=== PATIENT | male | born 1985 | race Caucasian/White ===

== ENCOUNTER 2020-04-23 11:44 | Inpatient (IN) ==
[2020-04-23] MEDS: 0.9 % SODIUM CHLORIDE 250 ML IV ONE ×2 (11:45→13:07)
[2020-04-23] MEDS ORDERED: PANTOPRAZOLE 40 MG VIAL IV ONE (12:03)
--- NOTE | 2020-04-23 12:07 | Emergency Department Note ---
GI Bleed HPI General Chief complaint: Rectal Bleed Stated complaint: rectal bleed, pale, syncope Time Seen by Provider: 04/23/20 11:51 Source: patient Mode of arrival: wheelchair Limitations: no limitations History of Present Illness HPI Narrative: Narrative: Patient describes 4 melanotic stools since about 5 days ago including this morning. This morning he nearly passed out like he got so weak he had to go down on the knee but he never completely went out. It seemed like his vision did get blurry and narrowed but it only lasted 1 to 2 minutes and he was back in bed. A roommate helped him by private car come to the emergency room. Here he was found to be weak looking, short of breath, pale. Patient admitted to poor p.o. intake with poor appetite. He does have chronic heartburn. He does drink 5-6 drinks/glasses of hard liquor daily and has been doing so for a long period of time. No blood thinners. He uses ibuprofen maybe 2 pills twice a week for headache. Sometimes Tylenol but no Aleve or aspirin. No history of peptic ulcer disease but describes the heartburn as mentioned which is fairly chronic. Does not take any medications for this. He also has had some accompanying chills and sweats today. No fevers at home. He is a never smoker. Related Data Home Medications Medication Instructions Recorded Confirmed No Known Home Meds 08/17/19 04/23/20 Allergies Allergy/AdvReac Type Severity Reaction Status Date / Time No Known Drug Allergies Allergy Unknown NONE Verified 08/17/19 05:10 [NKDA] Review of Systems ROS ROS Narrative: Narrative: No blurry vision or double vision No sore throat or runny nose No chest pain or palpitations No cough or wheeze No abdominal pain, diarrhea constipation, hematochezia or acid reflux specifically. No dysuria or frequency No back pain No rashes or lesions No headaches. Feels generalized weakness. No anxiety or depression Feels exhausted tired. No heat or cold intolerance No easy bleeding or easy bruising. [facility] Narrative Patient History Narrative: Narrative: Denies: Diabetes, renal disease, hypertension, anxiety, depression. Medical/Surgical/Family History All Active Problems (Updated 04/23/20 @ 16:21 by Eduardo Selby DO) Anemia due to blood loss, acute (Acute) Acute upper gastrointestinal bleeding (Acute) Alcoholism, chronic (Acute) Abnormal digital rectal exam (Acute) Alcoholism, chronic (Acute) Allergic reaction (Acute) Bee sting reaction (Acute) Urticarial rash (Acute) Medical History (Updated 04/23/20 @ 16:21 by Eduardo Selby DO) Alcoholism, chronic Social History Smoking Status: Smokeless tobacco Exam Narrative Narrative: Narrative: General Limitations: no limitations General appearance: Present alert, in no apparent distress, nontoxic and other (Generalized pallor is moderate-severe.) Head Head: Present atraumatic and normocephalic Eye Eye: Present normal appearance, PERRL and EOMI ENT ENT: Present normal oropharynx and mucous membranes moist Neck Neck: Present trachea midline; Absent lymphadenopathy and thyromegaly Chest Chest: Present symmetric chest wall rise Respiratory Respiratory: Present normal lung sounds bilaterally; Absent respiratory distress, rales/crackles, wheezes, stridor, accessory muscle use and prolonged expiratory phase Cardiovascular Cardiovascular: Present regular rate, normal rhythm and tachycardia (Mild. When he first arrived and ambulatory was markedly tachycardic.); Absent systolic murmur and diastolic murmur Adbominal Abdominal: Present soft; Absent distention, tenderness, guarding, rebound, rigidity, organomegaly and mass Extremities Extremities: Absent pedal edema, pretibial edema, calf tenderness and cyanosis Back Back: Absent CVA tenderness (R), CVA tenderness (L) and spinous process tenderness Neurological Neurological: Present alert and oriented X3 Psychiatric Psychiatric: Present normal affect, polite and pleasant; Absent depressed, agitated, anxious and poor eye contact Skin Skin: Present warm (WNL) and dry; Absent cyanosis and pallor Course Vital Signs Vital signs: Vital Signs Temperature 97.6 F 04/23/20 11:44 Pulse Rate 140 H 04/23/20 11:44 Respiratory Rate 22 04/23/20 11:44 Blood Pressure 104/64 04/23/20 11:44 Pulse Oximetry (%) 99 04/23/20 11:44 Temperature 97.6 F 04/23/20 11:45 Pulse Rate 99 H 04/23/20 15:46 Respiratory Rate 9 L 04/23/20 15:46 Blood Pressure 114/68 04/23/20 15:46 Pulse Oximetry (%) 100 04/23/20 15:46 MDM MDM Narrative Medical decision making narrative: Narrative: 11:53 AM - pale, short of breath, weak, near syncopal with melanotic stools. Multiple labs. Second IV. PPI. Coags. 12:05 PM - EKG is sinus rhythm at around 96 with no ACS or other abnormalities. 12:27 PM - with a hemoglobin of 5.9. Patient has stabilized with a liter of fluids. Second liter going. He now does have a second IV site. We will type and cross 3 units. We will hold on using O- since he seems to have stabilized. 12:42 PM - patient denies any history of liver disease that he is aware of. Digital rectal exam reveals grossly positive Hemoccult without any red stool. It is a black residue. On rectal exam he has a large anterior rounded smooth mass that is at least 5 cm in size. It does not appear to be prostate or bladder. It is not friable as in no blood but exact source is not obvious. Not particularly tender. Patient has not previously experienced alcohol withdrawal. He wonders if his s weatiness and chills this morning could have been related to a withdrawal. He has not drank x4 days. 3:07 PM - spoke with GI, Dr. Damian Leslie, who agrees with circumstances of needing EGD, probable upper GI bleed probable gastric or duodenal ulcer. He suggest patient be admitted under hospitalist and get blood and that he will do EGD when blood is hanging. Probably not an acute arterial bleed. The EGD will define better where he needs to go a longer term as patient's risks for acute severe bleed will not be handled by Dr. Murry, not on-call in the evening. Nursing staff will help determine best circumstances. Dr. Murry will do an exam when patient has anesthesia to additionally evaluate the rectal mass that I palpated. 3:57 PM - spoke with hospitalist, Dr. Narinder Robb, who is pointing out to help patient is young and did have significant bleeding to have had such a tachycardia. He may not be actively bleeding but has at least had a very significant bleed recently to be as symptomatic and problematic with vital sign changes, etc. He therefore is pointing out the importance for him to be in ICU. He would like to have 5 units of blood available on hold. He recommends going ahead with the PPI drip. He is willing to have Dr. Mathew as backup for acute changes that would be of disastrous or require extraordinary intervention such as laparotomy. Blood resuscitation would be the most important thing to be cautious to have available. He agrees with monitoring H&H including a POC Chem-8 current. This is ordered. PPI drip is ordered. As of 3:45 PM, patient's pulse 99, blood pressure 114/68, respirations 9, saturating 100% on room air. Lab Data Result diagrams: 04/23/20 12:08 04/23/20 12:08 Labs: Lab Results 04/23/20 04/23/20 04/23/20 Range/Units 12:08 12:08 12:08 WBC 6.3 (4.5-11.0) K/mcL RBC 1.82 L (4.50-5.90) M/mcL Hgb 5.7 L* (13.5-16.5) g/dL Hct 17.8 L* (41.0-55.0) % POC Hct 17 L* (41-55) % MCV 97.8 (80.0-100.0) fL MCH 31.3 (26.0-34.0) pg MCHC 32.0 (31.0-36.0) g/dL RDW 14.0 (11.5-14.5) % Plt Count 245 (140-440) K/mcL MPV 9.8 (7.4-10.4) fL Neut % (Auto) 44.0 (38.0-78.0) % Lymph % (Auto) 46.8 (15.0-49.0) % [place] % (Auto) 7.1 (1.0-12.0) % Eos % (Auto) 1.9 (0.0-7.0) % Baso % (Auto) 0.2 (0.0-2.0) % Lymph # (Auto) 2.96 (1.50-4.80) K/mcL [place] # (Auto) 0.45 (0.10-0.90) K/mcL Eos # (Auto) 0.12 (0.00-0.70) K/mcL Baso # (Auto) 0.01 (0.00-0.20) K/mcL Absolute Neutrophils 2.78 (1.80-8.00) K/mcL POC PT 12.3 (11.9-14.5) sec POC INR 1.0 (0.8-1.2) APTT 24.1 (20.0-37.0) sec POC Sodium 136 (133-145) mEq/L Sodium 136 (133-145) mmol/L POC Potassium 3.9 (3.3-5.1) mEql/L Potassium 4.0 (3.3-5.1) mmol/L POC Chloride 105 (96-108) mEq/L Chloride 103 (96-108) mmol/L Carbon Dioxide 21 L (22-30) mmol/L POC Total CO2 20 L (22-30) mmol/L Anion Gap 12.0 (8.0-16.0) POC BUN 25 H (6-20) mg/dL BUN 26 H (6-20) mg/dL Creatinine 0.8 (0.7-1.2) mg/dL POC Creatinine 0.8 (0.6-1.2) mg/dL GFR Calculation 116 Glucose 150 H (70-105) mg/dL POC Glucose 149 H (70-105) mg/dL Calcium 8.2 L (8.6-10.4) mg/dL POC WB Ioniz Calcium 1.16 (1.16-1.32) mmEq/L Total Bilirubin 0.2 (0.1-1.0) mg/dL AST 24 (<40) U/L ALT 15 (<40) U/L Alkaline Phosphatase 45 (39-117) U/L Total Protein 5.3 L (5.9-8.4) gm/dL Albumin 3.3 (3.2-5.2) gm/dL Globulin 2.0 L (2.2-3.7) gm/dL Albumin/Globulin Ratio 1.6 (1.0-2.3) Discharge Plan Patient/Caregiver Discharge Instructions Pt seen by FIRE CHIEF'S AIDE/PA only: No Clinical Impression: Anemia due to blood loss, acute, Acute upper gastrointestinal bleeding, Alcoholism, chronic, Abnormal digital rectal exam Patient Disposition: Xfer As Inpt ([facility]) Condition: Fair Follow up with: No,PCP [Primary Care Provider] - Prescriptions: No Action No Known Home Meds RF: 0
[2020-04-23 12:23] LABS: POC Blood Urea Nitrogen 25 mg/dL (6-20); POC CO2 20 mmol/L (22-30); POC Calcium, Ionized 1.16 mmEq/L (1.16-1.32); POC Chloride 105 mEq/L (96-108); POC Creatinine 0.8 mg/dL (0.6-1.2); POC Glucose, Random 149 mg/dL (70-105); POC Hematocrit 17 % (41-55); POC Potassium 3.9 mEql/L (3.3-5.1); POC Sodium 136 mEq/L (133-145)
[2020-04-23] MEDS ORDERED: SODIUM CHLORIDE IV ONE (12:39)
[2020-04-23 12:45] LABS: POC Pro Time 12.3 sec (11.9-14.5)
[2020-04-23 12:59] LABS: Basophils # (Auto) 0.01 K/mcL (0.00-0.20); Basophils % (Auto) 0.2 % (0.0-2.0); Eosinophils # (Auto) 0.12 K/mcL (0.00-0.70); Eosinophils % (Auto) 1.9 % (0.0-7.0); Hematocrit 17.8 % (41.0-55.0); Hemoglobin 5.7 g/dL (13.5-16.5); Lymphocytes # (Auto) 2.96 K/mcL (1.50-4.80); Lymphocytes % (Auto) 46.8 % (15.0-49.0); Mean Cell Volume 97.8 fL (80.0-100.0); Mean Platelet Volume 9.8 fL (7.4-10.4); Monocytes # (Auto) 0.45 K/mcL (0.10-0.90); Monocytes % (Auto) 7.1 % (1.0-12.0); Platelet Count 245 K/mcL (140-440); RBC 1.82 M/mcL (4.50-5.90); WBC 6.3 K/mcL (4.5-11.0)
[2020-04-23 13:04] LABS: ALT/SGPT 15 U/L (<40); AST/SGOT 24 U/L (<40); Albumin 3.3 gm/dL (3.2-5.2); Albumin/Globulin Ratio 1.6 (1.0-2.3); Alkaline Phosphatase 45 U/L (39-117); Bilirubin,Total 0.2 mg/dL (0.1-1.0); Blood Urea Nitrogen 26 mg/dL (6-20); Calcium 8.2 mg/dL (8.6-10.4); Carbon Dioxide 21 mmol/L (22-30); Chloride 103 mmol/L (96-108); Glomerular Filtration Rate 116; Glucose 150 mg/dL (70-105)
[2020-04-23 13:29] LABS: Partial Thromboplastin Time 24.1 sec (20.0-37.0)
[2020-04-23] MEDS ORDERED: KETAMINE HCL 50 MG/ML ML IV PRN (15:52)
[2020-04-23] MEDS ORDERED: PROPOFOL 200 MG/20 ML VIAL IV SCH (16:00)
[2020-04-23] MEDS ORDERED: PANTOPRAZOLE 80 MG in 0.9 % SODIUM CHLORIDE 100 ML IV SCH (16:15)
[2020-04-23] MEDS ORDERED: MIDAZOLAM 2 MG/2 ML VIAL ONE (16:28)
[2020-04-23] MEDS ORDERED: PROPOFOL 200 MG/20 ML VIAL IV ONE ×2 (16:28→17:54)
[2020-04-23] MEDS ORDERED: 0.9 % SODIUM CHLORIDE 250 ML IV SCH (16:30)
--- NOTE | 2020-04-23 17:03 | Internal Med History&Physical ---
HPI History of Present Illness Patient information: Note initiated : 04/23/20 at 4:48 pm Service Date, if different from initiated Date: [] Patient: Arnulfo Holland 34 y/o M admitted on for Rectal Bleed, Pale, Syncope. Chief Complaint: [dark stools and light headedness ] History of present illness: Mr. Holland is a 34 year old male with a history of alcohol use disorder presents for evaluation of extreme fatigue, lightheadedness and intermittent dark tarry stools for several weeks. Patient says that he first noticed dark tarry stools several weeks ago and they resolved spontaneously. They have reoccurred recently and the patient has experienced progressive fatigue, lightheadedness the point where he was not able to walk across the room without symptoms. The patient presented to the ED and was found to have a hemoglobin of 5.7. The patient was given 3 L of RBC. He felt better after receiving IV fluids and started on red blood cell transfusions. GI was consulted, plans for urgent endoscopic work-up. The patient was started on Protonix IV and admitted to the ICU. Review of systems Constitutional: extreme fatigue, no fevers Eyes: no vision changes or pain Cardiovascular: no chest pain, no palpitations Respiratory: no cough or dyspnea Gastrointestinal: positive for melanotic stools and chronic heart burn Genitourinary: no dysuria or difficulty voiding Musculoskeletal: no arthralgia or myalgia Integumentary: no skin lesion or wound Neurological: no focal weakness or numbness Psychiatric: no anxiety or depression PFSH PFSH All Active Problems (Updated 04/23/20 @ 16:21 by Eduardo Selby DO) Anemia due to blood loss, acute (Acute) Acute upper gastrointestinal bleeding (Acute) Alcoholism, chronic (Acute) Abnormal digital rectal exam (Acute) Alcoholism, chronic (Acute) Allergic reaction (Acute) Bee sting reaction (Acute) Urticarial rash (Acute) Medical History (Updated 04/23/20 @ 16:21 by Eduardo Selby DO) Alcoholism, chronic Social History smoking status: Smokeless tobacco MEDS/ALLERGIES Home Medications and Allergies Home Medications Medication Instructions Recorded Confirmed Type No Known Home Meds 08/17/19 04/23/20 History Allergies Allergy/AdvReac Type Severity Reaction Status Date / Time No Known Drug Allergies Allergy Unknown NONE Verified 08/17/19 05:10 [NKDA] EXAM Constitutional Vitals: Temp Pulse Resp BP Pulse Ox 97.6 F 96 H 13 113/67 99 04/23/20 11:45 04/23/20 16:31 04/23/20 16:31 04/23/20 16:31 04/23/20 16:31 Additional findings Additional findings: Head: Atraumatic, normal inspection. Eyes: palce conjuntiva, otherwise normal appearance, no scleral icterus. Neck: full ROM Respiratory: no respiratory distress. Cardiovascular: normal rate and rhythm, S1, S2. GI/Abdominal: soft, nontender, no guarding. Extremities: full range of motion, nontender. Neurological: CN II-XII intact, intact motor, intact sensation. Psychiatric: normal mood. Skin: warm, normal color DATA Data Completed and Pending Labs: Labs from last 24 hours 04/23/20 04/23/20 04/23/20 12:34 12:08 12:08 WBC RBC Hgb Hct POC Hct 17 L* MCV MCH MCHC RDW Plt Count MPV Neut % (Auto) Lymph % (Auto) [place] % (Auto) Eos % (Auto) Baso % (Auto) Lymph # (Auto) [place] # (Auto) Eos # (Auto) Baso # (Auto) Absolute Neutrophils POC PT 12.3 POC INR 1.0 APTT 24.1 POC Sodium 136 Sodium 136 POC Potassium 3.9 Potassium 4.0 POC Chloride 105 Chloride 103 Carbon Dioxide 21 L POC Total CO2 20 L Anion Gap 12.0 POC BUN 25 H BUN 26 H Creatinine 0.8 POC Creatinine 0.8 GFR Calculation 116 Glucose 150 H POC Glucose 149 H Calcium 8.2 L POC WB Ioniz Calcium 1.16 Total Bilirubin 0.2 AST 24 ALT 15 Alkaline Phosphatase 45 Total Protein 5.3 L Albumin 3.3 Globulin 2.0 L Albumin/Globulin Ratio 1.6 Miscellaneous Test Pending 04/23/20 12:08 WBC 6.3 RBC 1.82 L Hgb 5.7 L* Hct 17.8 L* POC Hct MCV 97.8 MCH 31.3 MCHC 32.0 RDW 14.0 Plt Count 245 MPV 9.8 Neut % (Auto) 44.0 Lymph % (Auto) 46.8 [place] % (Auto) 7.1 Eos % (Auto) 1.9 Baso % (Auto) 0.2 Lymph # (Auto) 2.96 [place] # (Auto) 0.45 Eos # (Auto) 0.12 Baso # (Auto) 0.01 Absolute Neutrophils 2.78 POC PT POC INR APTT POC Sodium Sodium POC Potassium Potassium POC Chloride Chloride Carbon Dioxide POC Total CO2 Anion Gap POC BUN BUN Creatinine POC Creatinine GFR Calculation Glucose POC Glucose Calcium POC WB Ioniz Calcium Total Bilirubin AST ALT Alkaline Phosphatase Total Protein Albumin Globulin Albumin/Globulin Ratio Miscellaneous Test A/P Narrative A/P Narrative: Assessment: 34-year-old male with history of alcohol use disorder, chronic NSAID use (ibuprofen OTC), reported heartburn presented to the ED after several weeks of intermittent melanotic stools, progressive fatigue and orthostasis and found to have severe acute anemia. Most likely reason for the blood loss anemia is an upper GI bleed. Patient was also found to have a rectal mass on the DRG in the ED, uncertain etiology. No evidence of liver cirrhosis therefore variceal bleed unlikely. #Upper GI bleed #Acute blood loss anemia #Possible rectal mass of uncertain etiology #Chronic NSAID use #GERD vs PUD #Alcohol use disorder #GERD Plan: -Admit to ICU, telemetry -Protonix ggt -Hemoglobin trend [id number] for hgb<7 or symptomatic anemia -Keep 5 units RBC reserved until patient is stable. -GI consulted-planning for endoscopic workup -Further workup of possible rectal mass will depend on endoscopic findings. -Monitor for alcohol withdrawal. -No NSAIDs -No anticoagulants or antiplatelets Time Spent With Patient Time: Total time spent is greater than 50% in coordination of care (as documented) at patient's floor/unit and/or counseling patient:
[2020-04-23 17:20] LABS: POC Blood Urea Nitrogen 19 mg/dL (6-20); POC CO2 22 mmol/L (22-30); POC Chloride 108 mEq/L (96-108); POC Creatinine 0.7 mg/dL (0.6-1.2); POC Glucose, Random 104 mg/dL (70-105); POC Hematocrit < 15 % (41-55); POC Sodium 138 mEq/L (133-145)
[2020-04-23] MEDS: MIDAZOLAM 2 MG/2 ML VIAL IV SCH ×2 (17:21→18:08)
[2020-04-23] MEDS ORDERED: EPINEPHrine 1 MG/ML AMPUL IJ ONE (17:23)
[2020-04-23] MEDS ORDERED: ONDANSETRON 4 MG/2 ML VIAL IV PRN (17:41)
[2020-04-23] MEDS: PANTOPRAZOLE 80 MG in 0.9 % SODIUM CHLORIDE 100 ML IV SCH (18:15)
[2020-04-23] MEDS: 0.9 % SODIUM CHLORIDE 10 ML SYRINGE IV SCH (21:08)
[2020-04-23] MEDS: 0.9 % SODIUM CHLORIDE 250 ML IV SCH (21:08)
[2020-04-24] MEDS: PANTOPRAZOLE 80 MG in 0.9 % SODIUM CHLORIDE 100 ML IV SCH (03:50)
[2020-04-24] MEDS: 0.9 % SODIUM CHLORIDE 10 ML SYRINGE IV SCH ×3 (05:31→21:31)
[2020-04-24] MEDS: 0.9 % SODIUM CHLORIDE 250 ML IV SCH (05:51)
--- NOTE | 2020-04-24 09:05 | EGD Procedure Note ---
EGD Procedure Notes Procedure Information Patient information: Note initiated : 04/24/20 at 9:02 am Service Date: 04/23/20 Patient: Arnulfo Holland 34 y/o M admitted on 04/23/20 for Rectal Bleed, Pale, Syncope. Pre-op diagnosis general: UGI bleed. Post-Op Diagnosis general: Bleeding esophageal ulcer. Procedure: EGD with control of bleed Procedure Narrative: The procedure, alternatives and risks were discussed with the patient and the patient's questions were answered. With endoscopist-administered intravenous sedation, the Olympus video endoscope was introduced into the esophagus. The esophagus, stomach, and duodenum were examined sequentially. Severe ulcerative reflux esophagitis was seen. There was a clot in the distal esophagus with visible vessel. This was injected with epinephrine and cauterized. A sliding hiatal hernia was seen. The gastric mucosa, antrum, pyloric ring and duodenum were otherwise normal. The scope was withdrawn. Assessment: Bleeding esophageal ulcer. He will require PPI for his lifetime.
--- NOTE | 2020-04-24 11:19 | Internal Med Progress Note ---
SUBJECTIVE Subjective Patient information: Note initiated : 04/24/20 at 11:14 am Service Date, if different from initiated Date: [] Patient: Arnulfo Holland 34 y/o M admitted on 04/23/20 for Rectal Bleed, Pale, Syncope. Chief Complaint: [] Interval history: Mr. Holland is a 34 year old male with a history of alcohol use disorder presents for evaluation of extreme fatigue, lightheadedness and intermittent dark tarry stools for several weeks. Patient says that he first noticed dark tarry stools several weeks ago and they resolved spon taneously. They have reoccurred recently and the patient has experienced progressive fatigue, lightheadedness the point where he was not able to walk across the room without symptoms. The patient presented to the ED and was found to have a hemoglobin of 5.7. The patient was given 3 L of RBC. He felt better after receiving IV fluids and started on red blood cell transfusions. GI was consulted, plans for urgent endoscopic work-up. The patient was started on Protonix IV and admitted to the ICU. 04/24 EGD showed an ulcer with recent bleeding stigmata. Received another unit of RBC. Hemodynamically stable. GI did not palpate any rectal mass when performing a digital rectal exam under anaesthesia. Constitutional Vitals: Vital Signs Temp Pulse Resp BP Pulse Ox 99.1 F H 66 13 117/73 100 04/24/20 06:06 04/24/20 08:00 04/24/20 10:02 04/24/20 10:02 04/24/20 09:00 Period Temp Pulse Resp BP Sys/Traore Pulse Ox Last 24 Hr 97.6 F-99.7 F 62-140 2-27 90-148/54-121 97-100 Intake and Output 04/23/20 04/24/20 04/24/20 21:59 05:59 13:59 Intake Total 462 545 3844 Output Total 900 0 800 Balance -250 930 365 Weight 76.022 kg Intake & Output: Intake & Output 04/23/20 04/24/20 04/24/20 21:59 05:59 13:59 Intake Total 621 761 8401 Output Total 900 0 800 Balance -250 930 365 Weight 76.022 kg Intake: IV 270 Sodium Chloride 0.9% 250 ml @ 174 20 mls/hr IV .[id number] [facility] Rx#: [id number] Protonix 80 mg In Sodium 96 Chloride 0.9% 100 ml @ 8 MG/HR 10 mls/hr IV Q10H [facility] Rx#: [id number] Oral 660 840 Blood Product 650 325 Output: Void Amount 900 0 800 Other: Meal Breakfast Percent of Meal Consumed 100% Feeding Ability Independent Urine Appearance Clear Clear Clear Urine Color Bright Yellow Bright Yellow Dark Yellow Urine Odor Normal Normal Additional findings Additional findings: Head: Atraumatic, normal inspection. Eyes: normal appearance, no scleral icterus. Neck: full ROM Respiratory: no respiratory distress. Cardiovascular: normal rate and rhythm, S1, S2. GI/Abdominal: soft, nontender, no guarding. Extremities: full range of motion, nontender. Neurological: CN II-XII intact, intact motor, intact sensation. Psychiatric: normal mood. Skin: warm, normal color OBJ DATA Labs CBC & Chem 7: 04/24/20 03:17 04/23/20 12:08 Labs: Abnormal Lab Results 04/24/20 04/23/20 04/23/20 03:17 22:42 16:54 RBC Hgb 6.4 L* 7.4 L Hct POC Hct < 15 L* Carbon Dioxide POC Total CO2 POC BUN BUN Glucose POC Glucose Calcium Total Protein Globulin 04/23/20 04/23/20 12:08 12:08 RBC 1.82 L Hgb 5.7 L* Hct 17.8 L* POC Hct 17 L* Carbon Dioxide 21 L POC Total CO2 20 L POC BUN 25 H BUN 26 H Glucose 150 H POC Glucose 149 H Calcium 8.2 L Total Protein 5.3 L Globulin 2.0 L Meds: Medications Ondansetron HCl (Ondansetron 4 Mg/2 Ml Vial) 4 mg IV Q4-6HP PRN; Protocol PRN Reason: Nausea And Vomiting Pantoprazole Sodium (Pantoprazole 40 Mg Tablet) 40 mg PO BIDAC [facility] Sodium Chloride (0.9 % Sodium Chloride 10 Ml Syringe) 10 ml IV Q8 [facility] Last Admin: 04/24/20 05:31 Dose: 10 ml Documented by: A/P Narrative A/P Narrative: Assessment: 34-year-old male with history of alcohol use disorder, chronic NSAID use (ibuprofen OTC), reported heartburn presented to the ED after several weeks of intermittent melanotic stools, progressive fatigue and orthostasis and found to have severe acute anemia. EGD showed an esophageal ulcer reportedly covered with a blood clot. #Upper GI bleed secondary to esophageal ulcer #Acute blood loss anemia #GI performed digital rectal exam under anaesthesia-negative for palpable mass #Chronic NSAID use #Alcohol use disorder #GERD Plan: -Transition from protonix IV ggt to PO BID-high dose treatment for 8 weeks then probably once daily indefinitely. -Hemoglobin trend [id number] for hgb<7 or symptomatic anemia -Keep 5 units RBC reserved until stable. -Follow up with GI in clinic. -Monitor for alcohol withdrawal. -No NSAIDs -No anticoagulants or antiplatelets -Dispo: home when hemoglobin trend stable with GI follow up Time Spent With Patient Time: Total time spent is greater than 50% in coordination of care (as documented) at patient's floor/unit and/or counseling patient: QUALITY VTE Deep Vein Thrombosis/Pulmonary Embolism Present on Admission: No
[2020-04-24] MEDS: PANTOPRAZOLE 40 MG TABLET PO SCH (17:23)
[2020-04-25] MEDS: 0.9 % SODIUM CHLORIDE 10 ML SYRINGE IV SCH ×2 (05:20→12:09)
[2020-04-25 06:38] LABS: Basophils # (Auto) 0.02 K/mcL (0.00-0.20); Basophils % (Auto) 0.5 % (0.0-2.0); Eosinophils # (Auto) 0.12 K/mcL (0.00-0.70); Eosinophils % (Auto) 2.8 % (0.0-7.0); Hematocrit 22.5 % (41.0-55.0); Hemoglobin 7.4 g/dL (13.5-16.5); Lymphocytes # (Auto) 1.56 K/mcL (1.50-4.80); Mean Cell Volume 91.5 fL (80.0-100.0); Mean Corpuscular HGB Conc 32.9 g/dL (31.0-36.0); Mean Platelet Volume 9.8 fL (7.4-10.4); Monocytes # (Auto) 0.47 K/mcL (0.10-0.90); Monocytes % (Auto) 11.1 % (1.0-12.0); Neutrophils % (Auto) 48.6 % (38.0-78.0); Platelet Count 187 K/mcL (140-440); RBC 2.46 M/mcL (4.50-5.90); Red Cell Distribution Width 17.2 % (11.5-14.5); WBC 4.2 K/mcL (4.5-11.0)
[2020-04-25] MEDS: PANTOPRAZOLE 40 MG TABLET PO SCH (07:13)
[2020-04-25 07:14] LABS: Iron 13 ug/dL (61-157); TIBC Calculation 228 ug/dl (228-428); Transferrin % Saturation 6 % (20-50)
[2020-04-25 10:14] LABS: Hematocrit 22.9 % (41.0-55.0); Hemoglobin 7.4 g/dL (13.5-16.5)
--- NOTE | 2020-04-25 14:42 | Discharge Summary ---
Discharge Provider Provider Patient information: Note initiated : 04/25/20 at 2:42 pm Service Date, if different from initiated Date: [] Patient: Arnulfo Holland 34 y/o M admitted on 04/23/20 for Rectal Bleed, Pale, Syncope. Chief Complaint: [] Date of admission: 04/23/20 17:32 Discharge date: 04/25/20 Primary care physician: PCP No Consults: 04/24/20 07:52 Consult to Physician [CONS] Routine Comment: Consulting Provider: Narinder Robb Reason For Exam: Physician to Consult Discharge Meds Discharge Medications Home Medications pantoprazole 40 mg PO BIDAC 60 Days #120 tab 04/25/20 [Rx Last Taken Unknown] pantoprazole [Protonix] 40 mg PO QDAY #90 tab 04/25/20 [Rx Last Taken Unknown] COURSE Hospital Course Hospital course: Mr. Holland is a 34 year old male with a history of alcohol use disorder presents for evaluation of extreme fatigue, lightheadedness and intermittent dark tarry stools for several weeks. Patient says that he first noticed dark tarry stools several weeks ago and they resolved spontaneously. Melanotic stools reoccurred, the patient experienced progressive fatigue, lightheadedness the point where he was not able to walk across the room without symptoms. The patient presented to the ED and was found to have a hemoglobin of 5.7. The patient was given multiple units of RBC. The patient was started on Protonix IV and admitted to the ICU. GI was consulted and and urgent EGD showed a bleeding esophageal ulcer and severe ulcerative reflux esophagitis. The ulcer was injected with epinephrine and cauterized. The patient was monitored in the ICU and remained stable. He was transitioned to protonix PO BID, the plan is to continue for 8 weeks then transition to once daily protonix. After hemoglobin trend remained stable the patient was discharged to home with GI follow up. Follow up GI appointment in clinic. Follow up hemoglobin level. Discharge diagnosis: Acute upper GI bleed Secondary discharge diagnosis: Acute blood loss anemia Esophageal ulcer Time Spent with Patient Time attestation: Total time spent providing and/or coordinating discharge services: 35 minutes EXAM Constitutional Vitals: Temp Pulse Resp BP Pulse Ox 98.4 F 62 16 131/67 100 04/25/20 12:01 04/25/20 01:43 04/25/20 13:01 04/25/20 13:01 04/25/20 13:39 Additional findings Additional findings: Head: Atraumatic, normal inspection. Eyes: normal appearance, no scleral icterus. Neck: full ROM Respiratory: no respiratory distress. Cardiovascular: normal rate and rhythm, S1, S2. GI/Abdominal: soft, nontender, no guarding. Extremities: full range of motion, nontender. Neurological: CN II-XII intact, intact motor, intact sensation. Psychiatric: normal mood. Skin: warm, normal color Discharge Data Data Completed and Pending Labs on day of discharge: Labs from last 24 hours 04/25/20 04/25/20 04/25/20 13:58 09:41 05:27 WBC 4.2 L RBC 2.46 L Hgb 7.5 L 7.4 L 7.4 L Hct 22.9 L 22.5 L MCV 91.5 MCH 30.1 MCHC 32.9 RDW 17.2 H Plt Count 187 MPV 9.8 Neut % (Auto) 48.6 Lymph % (Auto) 37.0 [place] % (Auto) 11.1 Eos % (Auto) 2.8 Baso % (Auto) 0.5 Lymph # (Auto) 1.56 [place] # (Auto) 0.47 Eos # (Auto) 0.12 Baso # (Auto) 0.02 Absolute Neutrophils 2.05 Iron TIBC Unsat Iron Binding Transferrin % Sat 04/25/20 04/24/20 05:26 15:12 WBC RBC Hgb 8.1 L Hct MCV MCH MCHC RDW Plt Count MPV Neut % (Auto) Lymph % (Auto) [place] % (Auto) Eos % (Auto) Baso % (Auto) Lymph # (Auto) [place] # (Auto) Eos # (Auto) Baso # (Auto) Absolute Neutrophils Iron 13 L TIBC 228 Unsat Iron Binding 215 Transferrin % Sat 6 L Discharge Plan Patient/Caregiver Discharge Instructions Activity: increase activity as tolerated Instructions: Pantoprazole (By mouth), Gastrointestinal Bleeding (GEN), Gastroesophageal Reflux Disease (GEN), Upper Endoscopy (GEN) Activity Restrictions/Additional Instructions: A one time appointment has been scheduled with Dr. Aretha Ghosh You have been scheduled with a follow up appointment with Dr. Leslie re: your EGD This discharge packet is provided to you to help keep you informed about your care. We want to ensure you get everything you need when you go home. You will also be receiving a call from us in a few days to follow up with you and see how you are doing since your discharge. This gives us a chance to listen to any concerns you maybe experiencing since you were discharged or any additional needs you may have, as well as providing us feedback on your care experience. We strive to always provide excellent care and thank you for your feedback and for choosing [facility]. Prescriptions: New pantoprazole 40 mg Tablet,Delayed Release (Dr/Ec) 40 mg PO BIDAC 60 Days Qty: 120 RF: 0 pantoprazole [Protonix] 40 mg tablet,delayed release (DR/EC) 40 mg PO QDAY Qty: 90 RF: 4 Follow Up Plan Follow up with: Yessi Ghosh ARNP [Nurse Practitioner] - 05/07/20 4:45 pm (This is a one time follow up appointment.) Damian Leslie MD [Physician] - 05/02/20 6:00 pm No,PCP [Primary Care Provider] - Patient Disposition: Home, Self-Care Plan of Treatment: Take Protonix 40 mg twice a day for 8 weeks then start taking Protonix 40 mg once a day, continue indefinitely unless otherwise instructed by a provider. Follow up with GI in clinic for further instructions and possible repeat endoscopy. Avoid all NSAID pain medications indefinitely. Avoid alcohol intake. Prognosis: Fair Rehab Potential: Fair Overall status at discharge: patient is progressing back to baseline Discharge Orders: Discharge Order (Routine); Ordered 04/25/20 Ordered By: Narinder GUPTA VTE Deep Vein Thrombosis/Pulmonary Embolism Present on Admission: No
== END 2020-04-25 15:42 | disposition home or self-care (01) | DRG 381 ==
LOC: ED 11:44 → SUR 16:58 → ED 16:58 → ICU 17:32
PROVIDERS: ADMIT Internal Medicine; ATTEND Internal Medicine